=== PATIENT | male | born 1960 | race American Indian/Alaskan Native ===

== ENCOUNTER 2020-10-12 08:28 | Emergency (ER) | payer OTHER ==
--- NOTE | 2020-10-12 09:06 | EDM.PDOC ---
ED HPI GENERAL MEDICAL PROBLEM - General Chief Complaint: General Stated Complaint: WEAKNESS IN LEGS VIA NORTH Time Seen by Provider: 10/12/20 08:40 Source of Information: Reports: Patient, EMS, Provider History Limitations: Reports: Altered Mental Status, Physical Impairment (Experiencing confusion due to alcohol withdrawal) - History of Present Illness INITIAL COMMENTS - FREE TEXT/NARRATIVE: 60-year-old male was sent in from [facility] at the request of the patient for increased weakness in his legs and confusion. He said he does not feel well, however he is 48 hours into detoxing from chronic alcohol abuse. According to the primary director, if the patient requests to be seen there legally obligated for evaluation. His glucose was checked in route and it was 106, his vitals are stable, he is afebrile. He has left foot weakness for the past 3 to 4 weeks which has been worked up according to the patient. He does have some mild hallucinations. He has some difficulty in maintaining a thought process. Onset: Unknown/Unsure Associated Symptoms: Reports: Confusion, Malaise, Weakness (Left foot weakness especially dorsiflexion). Denies: Chest Pain, Cough, Headaches, Shortness of Breath Left Leg Pain Score (Numeric/FACES): 8 - Related Data Allergies Allergy/AdvReac Type Severity Reaction Status Date / Time influenza A (H1N1) virus Allergy Hives Verified 10/12/20 08:42 vaccine m-florence-split 2008 [From influenza A (H1N1)] meperidine [From Demerol] Allergy Hives Verified 10/12/20 08:42 morphine Allergy Confusion Verified 10/12/20 08:42 tramadol Allergy Cannot Verified 10/12/20 08:42 Remember Home Meds: Home Meds Ibuprofen 400 mg PO DAILYRT PRN 10/12/20 [History] LORazepam [Ativan] 2 mg PO DAILYRT PRN 10/12/20 [History] Metoprolol Succinate 50 mg PO DAILY 10/12/20 [History] amLODIPine [Norvasc] 5 mg PO DAILY 10/12/20 [History] cloNIDine [cloNIDine HCl] 0.1 mg PO DAILYRT PRN 10/12/20 [History] lisinopriL [Lisinopril] 40 mg PO DAILY 10/12/20 [History] Past Medical History HEENT History: Reports: Impaired Vision Cardiovascular History: Reports: Hypertension Psychiatric History: Reports: Addiction - Past Surgical History Musculoskeletal Surgical History: Reports: Hip Replacement, Knee Replacement, Shoulder Replacement Social & Family History - Tobacco Use Tobacco Use Status *Q: Current Every Day Tobacco User Years of Tobacco use: 15 Packs/Tins Daily: 1 - Caffeine Use Caffeine Use: Reports: Coffee, Tea - Alcohol Use Date of Last Drink: 10/09/20 - Recreational Drug Use Recreational Drug Use: No ED ROS GENERAL - Review of Systems Review Of Systems: See Below Constitutional: Reports: Malaise, Decreased Appetite. Denies: Fever, Chills HEENT: Denies: Vision Change Respiratory: Denies: Shortness of Breath Cardiovascular: Denies: Chest Pain GI/Abdominal: Denies: Abdominal Pain, Nausea, Vomiting Musculoskeletal: Denies: Back Pain Neurological: Reports: Confusion, Tremors (Significant systemic minor tremors, bilateral), Other (Left foot drop) Psychiatric: Reports: Confusion ED EXAM, GENERAL - Physical Exam Exam: See Below Exam Limited By: Physical Impairment (Mild alcohol withdrawal) General Appearance: Alert, No Apparent Distress Eye Exam: Bilateral Eye: Normal Inspection Head: Atraumatic Respiratory/Chest: No Respiratory Distress, Lungs Clear Cardiovascular: Regular Rate, Rhythm. No: Tachycardia GI/Abdominal: Soft, Non-Tender Extremities: Other (Patient does have some objective weakness with dorsiflexion of the left foot) Neurological: Alert. No: Oriented (Disoriented to time and place) Psychiatric: Flat Affect. No: Depressed Mood Skin Exam: Warm, Dry Course - Vital Signs Last Recorded V/S: Last Vital Signs Temp 97.5 F 10/12/20 08:33 Pulse 69 10/12/20 08:33 Resp 16 10/12/20 08:33 BP 146/75 H 10/12/20 08:33 Pulse Ox 96 10/12/20 08:33 - Orders/Labs/Meds Labs: Laboratory Tests 10/12/20 10/12/20 Range/Units 09:10 09:10 Sodium 139 L (140-148) mmol/L Potassium 3.4 L (3.6-5.2) mmol/L Chloride 101 (100-108) mmol/L Carbon Dioxide 28 (21-32) mmol/L Anion Gap 13.4 (5.0-14.0) mmol/L BUN 10 (7-18) mg/dL Creatinine 0.8 (0.8-1.3) mg/dL Est Cr Clr Drug Dosing 107.78 mL/min Estimated GFR (MDRD) > 60 (>60) Glucose 114 H (74-106) mg/dL Calcium 8.8 (8.5-10.1) mg/dL Total Bilirubin 1.1 H (0.2-1.0) mg/dL AST 204 H (15-37) U/L ALT 223 H (12-78) U/L Alkaline Phosphatase 99 (46-116) U/L Ammonia 24 (11-32) mmol/L Total Protein 7.1 (6.4-8.2) g/dL Albumin 3.3 L (3.4-5.0) g/dL Globulin 3.8 H (2.3-3.5) g/dL Albumin/Globulin Ratio 0.9 L (1.2-2.2) - Re-Assessments/Exams Free Text/Narrative Re-Assessment/Exam: 10/12/20 09:06 CMP and ammonia level will be obtained. 10/12/20 09:56 Patient remained calm and cooperative but mildly confused. Ammonia level returned normal, liver enzymes are mildly elevated consistent with chronic alcoholism. He will be discharged and sent back to [place] to finish his detox. Departure - Departure Time of Disposition: 11:01 Disposition: DC/Tfer to Other 70 Clinical Impression: Left foot drop Alcohol withdrawal Qualifiers: Complication of substance-induced condition: with perceptual disturbance Qualified Code(s): F10.232 - Alcohol dependence with withdrawal with perceptual disturbance - Discharge Information Instructions: Alcohol Withdrawal Syndrome, [id number] Referrals: PCP,None [Primary Care Provider] - Forms: ED Department Discharge Care Plan Goals: Patient will be transferred back to [place] to finish his detox, and can follow-up with his left foot drop when he is done with detox. Sepsis Event Note (ED) - Evaluation Sepsis Screening Result: No Definite Risk - Focused Exam Vital Signs: Vital Signs Temp Pulse Resp BP Pulse Ox 10/12/20 08:33 97.5 F 69 16 146/75 H 96
== END 2020-10-12 11:02 | disposition other institution (70) ==
LOC: JP.ED 08:28
DX: M21.372 Foot drop, left foot (principal); F10.232 Alcohol dependence with withdrawal with perceptual disturbance; I10 Essential (primary) hypertension; F17.210 Nicotine dependence, cigarettes, uncomplicated; Z88.5 Allergy status to narcotic agent; Z88.7 Allergy status to serum and vaccine; Z88.8 Allergy status to other drugs, medicaments and biological substances; Z79.899 Other long term (current) drug therapy
CPT/HCPCS: 36415; 80053; 82140; 99284

== ENCOUNTER 2020-10-12 19:51 | Emergency (ER) | payer OTHER ==
--- NOTE | 2020-10-12 20:33 | EDM.PDOC ---
<Zaid James - Last Filed: 10/12/20 20:11> ED HPI GENERAL MEDICAL PROBLEM - General Chief Complaint: Drug or Alcohol Abuse Stated Complaint: MEDICAL VIA NORTH Time Seen by Provider: 10/12/20 20:00 Source of Information: Reports: Patient, EMS, Old Records, RN History Limitations: Reports: Other (limited history available, patient not a reliable historian. ) - History of Present Illness INITIAL COMMENTS - FREE TEXT/NARRATIVE: 60 yo male has been at [facility] for a few days and was sent here this morning and now again tonight for "DT's". They want him forwarded on to [facility] since we are full. Crispin normally goes to the [facility]. Has been to [facility] in the past. Daughter says her dad often gets confused with he has been drinking and it often takes several days for him to clear requiring sedation while he is hospitalized. There has been no seizures. He apparently had some hallucinations, but denies having them currently. The daughter says that Crispin starts drinking usually as soon as he gets out of the hospital. [facility] returned him now specifically for his confusion and attempts to leave there. He is not on a hold or commitment at this time. Has about 2 weeks of drop foot on the left with some sensory loss. Onset: Unknown/Unsure (recurrent and confusion related to his ETOH use. ) Duration: Day(s): Location: Reports: Generalized Quality: Reports: Other (no pain reported) Severity: Moderate Improves with: Reports: Other (prolonged sobriety) Worsens with: Reports: Other (ETOH use. 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) (Haldol and diazepam at [facility]) - Related Data Allergies Allergy/AdvReac Type Severity Reaction Status Date / Time influenza A (H1N1) virus Allergy Hives Verified 10/12/20 19:57 vaccine m-florence-split 2008 [From influenza A (H1N1)] meperidine [From Demerol] Allergy Hives Verified 10/12/20 19:57 morphine Allergy Confusion Verified 10/12/20 19:57 tramadol Allergy Cannot Verified 10/12/20 19:57 Remember Home Meds: Home Meds Ibuprofen 400 mg PO DAILYRT PRN 10/12/20 [History] LORazepam [Ativan] 2 mg PO DAILYRT PRN 10/12/20 [History] Metoprolol Succinate 50 mg PO DAILY 10/12/20 [History] amLODIPine [Norvasc] 5 mg PO DAILY 10/12/20 [History] cloNIDine [cloNIDine HCl] 0.1 mg PO DAILYRT PRN 10/12/20 [History] lisinopriL [Lisinopril] 40 mg PO DAILY 10/12/20 [History] Past Medical History HEENT History: Reports: Impaired Vision Cardiovascular History: Reports: Hypertension Musculoskeletal History: Reports: Arthritis, Back Pain, Chronic Neurological History: Reports: Head Trauma Psychiatric History: Reports: Addiction - Past Surgical History Head Surgeries/Procedures: Reports: None HEENT Surgical History: Reports: Cataract Surgery Cardiovascular Surgical History: Reports: None Neurological Surgical History: Reports: None Musculoskeletal Surgical History: Reports: Hip Replacement, Knee Replacement, Shoulder Replacement Dermatological Surgical History: Reports: None Social & Family History - Tobacco Use Tobacco Use Status *Q: Current Every Day Tobacco User Years of Tobacco use: 45 Packs/Tins Daily: 1 Used Tobacco, but Quit: No Second Hand Smoke Exposure: Yes - Caffeine Use Caffeine Use: Reports: Coffee - Alcohol Use Days Per Week of Alcohol Use: 7 Number of Drinks Per Day: 6 Total Drinks Per Week: 42 - Recreational Drug Use Recreational Drug Use: No ED ROS GENERAL - Review of Systems Review Of Systems: Unable To Obtain (due to confusion) - Physical Exam Exam: See Below Exam Limited By: No Limitations General Appearance: Alert, WD/WN, No Apparent Distress Eye Exam: Bilateral Eye: Normal Inspection Ears: Normal External Exam, Normal Canal, Hearing Grossly Normal Nose: Normal Inspection, No Blood Throat/Mouth: Normal Inspection, Normal Lips, Normal Oropharynx, Normal Voice, No Airway Compromise Head Exam: Atraumatic, Normocephalic Neck: Normal Inspection Respiratory/Chest: No Respiratory Distress, Lungs Clear, Normal Breath Sounds, No Accessory Muscle Use Cardiovascular: Regular Rate, Rhythm, No Edema GI/Abdominal: Normal Bowel Sounds, Soft, Non-Tender, No Distention Neuro Exam (Abbreviated): Alert, CN II-XII Intact, Confused, Disoriented. No: Normal Cognition, No Motor/Sensory Deficits Back Exam: Normal Inspection Extremities: Normal Inspection, Normal Range of Motion, Non-Tender, No Pedal Edema Psychiatric: Other (is seeing people in the ER that are not present.) Skin Exam: Warm, Dry, Intact, Normal Color, No Rash Departure - Departure Disposition: Home, Self-Care 01 Clinical Impression: Alcohol abuse Alcohol withdrawal Qualifiers: Complication of substance-induced condition: with perceptual disturbance Qualified Code(s): F10.232 - Alcohol dependence with withdrawal with perceptual disturbance - Discharge Information Instructions: Alcohol Use Disorder Referrals: PCP,None [Primary Care Provider] - Forms: ED Department Discharge Additional Instructions: Refrain from alcohol follow-up primary care 3 to 5 days. Sepsis Event Note (ED) - Evaluation Sepsis Screening Result: No Definite Risk <OfficerSuresh - Last Filed: 10/13/20 10:33> Course - Vital Signs Last Recorded V/S: Last Vital Signs Temp 98.0 F 10/12/20 19:58 Pulse 66 10/12/20 19:58 Resp 16 10/12/20 19:58 BP 169/71 H 10/12/20 19:58 Pulse Ox 95 10/12/20 19:58 - Orders/Labs/Meds Labs: Laboratory Tests 10/12/20 10/12/20 10/12/20 Range/Units 20:50 20:50 22:03 WBC 4.1 L (4.5-11.0) K/uL RBC 4.04 L (4.30-5.90) M/uL Hgb 13.4 (12.0-15.0) g/dL Hct 41.6 (40.0-54.0) % MCV 103 H (80-98) fL MCH 33 H (27-31) pg MCHC 32 (32-36) % Plt Count 158 (150-400) K/uL Sodium 141 (140-148) mmol/L Potassium 3.9 (3.6-5.2) mmol/L Chloride 103 (100-108) mmol/L Carbon Dioxide 29 (21-32) mmol/L Anion Gap 9.2 (5.0-14.0) mmol/L BUN 13 (7-18) mg/dL Creatinine 1.0 (0.8-1.3) mg/dL Est Cr Clr Drug Dosing 86.22 mL/min Estimated GFR (MDRD) > 60 (>60) Glucose 113 H (74-106) mg/dL Calcium 9.1 (8.5-10.1) mg/dL Total Bilirubin 1.2 H (0.2-1.0) mg/dL AST 170 H (15-37) U/L ALT 222 H (12-78) U/L Alkaline Phosphatase 102 (46-116) U/L Total Protein 7.7 (6.4-8.2) g/dL Albumin 3.7 (3.4-5.0) g/dL Globulin 4.0 H (2.3-3.5) g/dL Albumin/Globulin Ratio 0.9 L (1.2-2.2) TSH, Ultra Sensitive 1.436 (0.358-3.740) uIU/mL Urine Color (YELLOW) Urine Appearance (CLEAR) Urine pH (5.0-8.0) Ur Specific [place] (1.008-1.030) Urine Protein (NEGATIVE) mg/dL Urine Glucose (UA) (NEGATIVE) mg/dL Urine Ketones (NEGATIVE) mg/dL Urine Occult Blood (NEGATIVE) Urine Nitrite (NEGATIVE) Urine Bilirubin (NEGATIVE) Urine Urobilinogen (0.2-1.0) EU/dL Ur Leukocyte Esterase (NEGATIVE) Urine RBC (0-5) Urine WBC (0-5) Ur Epithelial Cells Amorphous Sediment Urine Bacteria Urine Mucus 10/13/20 Range/Units 06:19 WBC (4.5-11.0) K/uL RBC (4.30-5.90) M/uL Hgb (12.0-15.0) g/dL Hct (40.0-54.0) % MCV (80-98) fL MCH (27-31) pg MCHC (32-36) % Plt Count (150-400) K/uL Sodium (140-148) mmol/L Potassium (3.6-5.2) mmol/L Chloride (100-108) mmol/L Carbon Dioxide (21-32) mmol/L Anion Gap (5.0-14.0) mmol/L BUN (7-18) mg/dL Creatinine (0.8-1.3) mg/dL Est Cr Clr Drug Dosing mL/min Estimated GFR (MDRD) (>60) Glucose (74-106) mg/dL Calcium (8.5-10.1) mg/dL Total Bilirubin (0.2-1.0) mg/dL AST (15-37) U/L ALT (12-78) U/L Alkaline Phosphatase (46-116) U/L Total Protein (6.4-8.2) g/dL Albumin (3.4-5.0) g/dL Globulin (2.3-3.5) g/dL Albumin/Globulin Ratio (1.2-2.2) TSH, Ultra Sensitive (0.358-3.740) uIU/mL Urine Color Yellow (YELLOW) Urine Appearance Clear (CLEAR) Urine pH 7.0 (5.0-8.0) Ur Specific [place] 1.020 (1.008-1.030) Urine Protein Negative (NEGATIVE) mg/dL Urine Glucose (UA) Negative (NEGATIVE) mg/dL Urine Ketones Negative (NEGATIVE) mg/dL Urine Occult Blood Negative (NEGATIVE) Urine Nitrite Negative (NEGATIVE) Urine Bilirubin Negative (NEGATIVE) Urine Urobilinogen 4.0 H (0.2-1.0) EU/dL Ur Leukocyte Esterase Negative (NEGATIVE) Urine RBC Not seen (0-5) Urine WBC Not seen (0-5) Ur Epithelial Cells Not seen Amorphous Sediment Not seen Urine Bacteria Not seen Urine Mucus Not seen Meds: Medications Discontinued Medications Generic Name Dose Route Start Last Admin Trade Name Freq PRN Reason Stop Dose Admin Acetaminophen 650 mg 10/13/20 09:23 10/13/20 09:28 Tylenol PO 10/13/20 09:24 650 mg NOW ONE Administration Lorazepam 1 mg 10/12/20 20:40 10/12/20 20:52 Ativan PO 10/12/20 20:41 1 mg ONETIME ONE Administration Thiamine HCl 100 mg 10/12/20 20:36 10/12/20 20:52 Vitamin B-1 PO 10/12/20 20:37 100 mg ONETIME ONE Administration Departure - Departure Time of Disposition: 10:32 Condition: Poor - Assessment/Plan Plan: Assessment Acuity = acute Site and laterality = alcohol abuse and dependence with confusion Etiology = EtOH Manifestations = none Location of injury = Home Lab values = WBC low at 4.1 consistent with leukopenia total bilirubin elevated 1.2 consistent with hyperbilirubinemia AST at 170 ALT 222 consistent elevated liver enzymes TSH normal 1.4 urinalysis unremarkable Plan He did well with a small amount of Ativan provided in the emergency department at this morning he was able to eat and drink tolerated intake well was ambulating around the emergency department with a walker he does use a walker at home plan is to discharge to family members This note was dictated using [employer] voice recognition software please call with any questions on syntax or grammar.
[2020-10-12] MEDS ORDERED: Thiamine 100 MG Tab PO ONE (20:36)
[2020-10-12] MEDS ORDERED: LORazepam 1 MG Tab PO ONE (20:40)
[2020-10-13] MEDS ORDERED: Acetaminophen 325 MG Tab PO ONE (09:23)
== END 2020-10-13 12:59 | disposition home or self-care (01) ==
LOC: JP.ED 19:51
DX: F10.232 Alcohol dependence with withdrawal with perceptual disturbance (principal); R41.0 Disorientation, unspecified; I10 Essential (primary) hypertension; F17.210 Nicotine dependence, cigarettes, uncomplicated; Z88.7 Allergy status to serum and vaccine; Z88.5 Allergy status to narcotic agent; Z79.899 Other long term (current) drug therapy
CPT/HCPCS: 36415; 80053; 81001; 84443; 85027; 99284; A9270